=== PATIENT | female | born 1965 | race Caucasian/White ===

== ENCOUNTER 2017-10-13 14:47 | Emergency (ER) | payer BC ==
[~2017-10-13] VITALS: Ht 160 cm; Wt 56.0 kg
[2017-10-13 14:49] VITALS: BP 104/64; PULSE 82; RESP 16; TEMP 98.4; O2SAT 98
[2017-10-13] MEDS ORDERED: SODIUM CHLOR 0.9% 1000 ML INJ 1,000 ML IV SCH (16:12)
[2017-10-13] MEDS ORDERED: SODIUM CHLORIDE 0.9% FLUSH 10 ML FLUSH IV FLUSH PRN (16:15)
[2017-10-13] MEDS ORDERED: ONDANSETRON HCL 4 MG/2 ML VIAL IVP ONE (16:15)
--- NOTE | 2017-10-13 16:15 | PD ---
HPI Chief Complaint: GI Complaint Time Seen by Provider: 16:11 Travel History International Travel<30 days: No Contact w/Intl Traveler<30days: No Traveled to known affect area: No History of Present Illness HPI here visiting, after eating some eggs benedict didn't feel "right". after a few hours patient started to experience n/v/d, throughout the day....denies any abd pain/rash/fever at this time.....no alleviating or aggravating factors... PFSH Past Medical History ?: Not Past Surgical History Hysterectomy: Yes Social History Tobacco Use: No Allergies-Medications (Allergen,Severity, Reaction): Coded Allergies: No Known Allergies (Unverified , 10/13/17) Reported Meds & Prescriptions Reported Meds & Active Scripts Active Naproxen EC (Naproxen) 375 Mg Tabdr 375 Mg PO BID Zofran Odt (Ondansetron Odt) 4 Mg Tab 4 Mg SL Q6HR PRN Review of Systems Except as stated in HPI: all other systems reviewed are Neg General / Constitutional: No: Fever Eyes: No: Visual changes HENT: No: Headaches Cardiovascular: No: Chest Pain or Discomfort Respiratory: No: Shortness of Breath Gastrointestinal: Positive: Abdominal Pain Genitourinary: No: Dysuria Musculoskeletal: No: Pain Skin: No Rash Neurologic: No: Weakness Psychiatric: No: Depression Endocrine: No: Polydipsia Hematologic/Lymphatic: No: Easy Bruising Physical Exam Narrative GENERAL: SKIN: Warm and dry. HEAD: Atraumatic. Normocephalic. EYES: Pupils equal and round. No scleral icterus. No injection or drainage. ENT: No nasal bleeding or discharge. Mucous membranes pink and moist. NECK: Trachea midline. No JVD. CARDIOVASCULAR: Regular rate and rhythm. RESPIRATORY: No accessory muscle use. Clear to auscultation. Breath sounds equal bilaterally. GASTROINTESTINAL: Abdomen soft, non-tender, nondistended. mild hyperactive bowel sounds MUSCULOSKELETAL: Extremities without clubbing, cyanosis, or edema. No obvious deformities. NEUROLOGICAL: Awake and alert. No obvious cranial nerve deficits. Motor grossly within normal limits. Five out of 5 muscle strength in the arms and legs. Normal speech. PSYCHIATRIC: Appropriate mood and affect; insight and judgment normal. Data Data Last Documented VS Vital Signs Date Time Temp Pulse Resp B/P (MAP) Pulse Ox O2 Delivery O2 Flow Rate FiO2 10/13/17 18:36 10/13/17 18:00 89 16 98 Room Air 10/13/17 14:49 98.4 Orders Orders Complete Blood Count With Diff (10/13/17 16:12) Comprehensive Metabolic Panel (10/13/17 16:12) Lipase (10/13/17 16:12) Prothrombin Time / Inr (Pt) (10/13/17 16:12) Act Partial Throm Time (Ptt) (10/13/17 16:12) Urinalysis - C+S If Indicated (10/13/17 16:12) Ct Abd/Pel W/O Iv Contrast (10/13/17 16:12) Iv Access Insert/Monitor (10/13/17 16:12) Ecg Monitoring (10/13/17 16:12) Oximetry (10/13/17 16:12) NPO (10/13/17 16:12) Ondansetron Inj (Zofran Inj) (10/13/17 16:15) Sodium Chlor 0.9% 1000 Ml Inj (Ns 1000 M (10/13/17 16:12) Sodium Chloride 0.9% Flush (Ns Flush) (10/13/17 16:15) Electrocardiogram (10/13/17 16:12) Chest, Single Ap (10/13/17 16:12) Troponin I (10/13/17 16:12) Ed Discharge Order (10/13/17 18:08) Labs Laboratory Tests Test 10/13/17 17:00 10/13/17 18:00 White Blood Count 7.9 TH/MM3 Red Blood Count 4.66 MIL/MM3 Hemoglobin 14.3 GM/DL Hematocrit 42.3 % Mean Corpuscular Volume 90.8 FL Mean Corpuscular Hemoglobin 30.6 PG Mean Corpuscular Hemoglobin Concent 33.7 % Red Cell Distribution Width 13.2 % Platelet Count 221 TH/MM3 Mean Platelet Volume 7.4 FL Neutrophils (%) (Auto) 91.8 % Lymphocytes (%) (Auto) 2.7 % Monocytes (%) (Auto) 4.6 % Eosinophils (%) (Auto) 0.1 % Basophils (%) (Auto) 0.8 % Neutrophils # (Auto) 7.2 TH/MM3 Lymphocytes # (Auto) 0.2 TH/MM3 Monocytes # (Auto) 0.4 TH/MM3 Eosinophils # (Auto) 0.0 TH/MM3 Basophils # (Auto) 0.1 TH/MM3 CBC Comment DIFF FINAL Differential Comment Prothrombin Time 11.1 SEC Prothromb Time International Ratio 1.1 RATIO Activated Partial Thromboplast Time 25.9 SEC Blood Urea Nitrogen 19 MG/DL Creatinine 0.59 MG/DL Random Glucose 102 MG/DL Total Protein 7.8 GM/DL Albumin 4.5 GM/DL Calcium Level 8.9 MG/DL Alkaline Phosphatase 62 U/L Aspartate Amino Transf (AST/SGOT) 38 U/L Alanine Aminotransferase (ALT/SGPT) 50 U/L Total Bilirubin 0.4 MG/DL Sodium Level 135 MEQ/L Potassium Level 4.0 MEQ/L Chloride Level 102 MEQ/L Carbon Dioxide Level 24.6 MEQ/L Anion Gap 8 MEQ/L Estimat Glomerular Filtration Rate 106 ML/MIN Troponin I LESS THAN 0.02 NG/ML Lipase 181 U/L Urine Color YELLOW Urine Turbidity CLEAR Urine pH 5.5 Urine Specific [place] 1.021 Urine Protein NEG mg/dL Urine Glucose (UA) NEG mg/dL Urine Ketones 40 mg/dL Urine Occult Blood TRACE Urine Nitrite NEG Urine Bilirubin NEG Urine Leukocyte Esterase NEG Urine RBC 0-3 /hpf Urine WBC 0-2 /hpf Urine Squamous Epithelial Cells 0-5 /hpf Urine Mucus FEW /lpf Microscopic Urinalysis Comment CULT NOT INDICATED MDM Medical Decision Making Medical Screen Exam Complete: Yes Emergency Medical Condition: Yes Medical Record Reviewed: Yes Interpretation(s) nsr, 75, nl intervals, no stemi pattern, pulse ox has excellent pleth wave, pulse ox 98% on ra which is within normal limits. Differential Diagnosis dehydration v pancreatitis v colitis v divertic v gastroenteritis Narrative Course patient is doing well, tolerated po, per history has no evidence of immune suppression. patient is expected to make a good recovery, pt advised that if symptoms worsen then antibiotics indicated....pt made aware that the vast majority of these infections are self limited and do not require any antibiotics Diagnosis Primary Impression: Bacterial gastroenteritis Patient Instructions: Gastroenteritis (ED), General Instructions Scripts Naproxen DR (Naproxen EC) 375 Mg Tabdr 375 MG PO BID, #12 TAB 0 Refills Prov: Conrado Salgado MD 10/13/17 Ondansetron Odt (Zofran Odt) 4 Mg Tab 4 MG SL Q6HR Y for Nausea/Vomiting, #20 TAB 0 Refills Prov: Conrado Salgado MD 10/13/17 Disposition: 01 DISCHARGE HOME Condition: Stable Conrado Salgado MD Oct 13, 2017 16:15
[2017-10-13 16:30] VITALS: O2SAT 95
[2017-10-13 17:09] LABS: AUTOMATED NEUTROPHIL # 7.2 TH/MM3 (1.8-7.7); BASOPHIL # 0.1 TH/MM3 (0-0.2); BASOPHIL % 0.8 % (0.0-2.0); EOSINOPHIL % 0.1 % (0.0-4.0); HEMATOCRIT 42.3 % (35.0-46.0); HEMOGLOBIN 14.3 GM/DL (11.6-15.3); LYMPH % 2.7 % (9.0-44.0); LYMPHOCYTE # 0.2 TH/MM3 (1.0-4.8); MEAN CELL VOLUME 90.8 FL (80.0-100.0); MEAN CORPUSCULAR HEMOGLOBIN 30.6 PG (27.0-34.0); MEAN CORPUSCULAR HGB CONC 33.7 % (32.0-36.0); MEAN PLATELET VOLUME 7.4 FL (7.0-11.0); MONO % 4.6 % (0.0-8.0); MONOCYTE # 0.4 TH/MM3 (0-0.9); NEUT % 91.8 % (16.0-70.0); PLATELET COUNT 221 TH/MM3 (150-450); RED BLOOD COUNT 4.66 MIL/MM3 (4.00-5.30); RED CELL DISTRIBUTION WIDTH 13.2 % (11.6-17.2); WHITE BLOOD COUNT 7.9 TH/MM3 (4.0-11.0)
[2017-10-13 17:17] LABS: CHLORIDE 102 MEQ/L (98-107); SODIUM (NA) 135 MEQ/L (136-145)
[2017-10-13 17:20] LABS: INTERNATIONAL NORMALIZED RATIO 1.1 RATIO; PROTHROMBIN TIME - PATIENT 11.1 SEC (9.8-11.6)
[2017-10-13 17:21] LABS: ALBUMIN 4.5 GM/DL (3.4-5.0); BICARBONATE 24.6 MEQ/L (21.0-32.0); BLOOD UREA NITROGEN 19 MG/DL (7-18); CALCIUM 8.9 MG/DL (8.5-10.1); GLUCOSE,RANDOM 102 MG/DL (74-106)
[2017-10-13 17:24] LABS: ALT (GPT) 50 U/L (10-53); AST (GOT) 38 U/L (15-37); CREATININE 0.59 MG/DL (0.50-1.00); GLOMERULAR FILTRATION RATE 106 ML/MIN (>89)
[2017-10-13 17:26] LABS: TOTAL BILIRUBIN ADULT 0.4 MG/DL (0.2-1.0); TOTAL PROTEIN 7.8 GM/DL (6.4-8.2)
[2017-10-13 17:27] LABS: ALKALINE PHOSPHATASE 62 U/L (45-117)
[2017-10-13 17:29] LABS: TROPONIN I LESS THAN 0.02 NG/ML (0.02-0.05)
--- NOTE | 2017-10-13 17:45 | RADRPT ---
EXAM DATE/TIME: 10/13/2017 17:29 [facility] COMPARISON: No previous studies available for comparison. INDICATIONS : Non specific abdominal pain with nausea, vomiting and diarrhea. Evaluate for renal stone. ORAL CONTRAST: No oral contrast ingested. RADIATION DOSE: 10.92 CTDIvol (mGy) MEDICAL HISTORY : None SURGICAL HISTORY : Hysterectomy. Cholecystectomy. ENCOUNTER: Initial ACUITY: 1 day PAIN SCALE: 4/10 LOCATION: pelvis abdomen TECHNIQUE: Volumetric scanning of the abdomen and pelvis was performed. Using automated exposure control and ad justment of the mA and/or kV according to patient size, radiation dose was kept as low as reasonably achievable to obtain optimal diagnostic quality images. DICOM format image data is available electro nically for review and comparison. FINDINGS: The lung base is are clear. The liver, spleen and pancreas unremarkable Gallbladder surgically absent Adrenal glands appear normal Right and left kidneys are unremarkable There is no extradural adenopathy In the pelvis the bladder index regions are unremarkable. Scattered pubis are present in the pelvis There is no free fluid Abdominal laguerre intact Review of bone windows reveals only degenerative changes. CONCLUSION: 1. Multiple phleboliths in the pelvis. I do not see evidence for renal stone or obstruction 2. I don't etiology for the abdominal pain. Jose M Montalvo MD FACR on October 13, 2017 at 17:41 Board Certified Radiologist. This report was verified electronically.
--- NOTE | 2017-10-13 17:58 | RADRPT ---
EXAM DATE/TIME: 10/13/2017 16:37 [facility] COMPARISON: No previous studies available for comparison. INDICATIONS : Nausea and vomiting, difficulty breathing. MEDICAL HISTORY : None. SURGICAL HISTORY : None. ENCOUNTER: Initial ACUITY: 1 day PAIN SCORE: 0/10 LOCATION: Bilateral upper chest FINDINGS: A single view of the chest demonstrates the lungs to be symmetrically aerated without evidence of mas s, infiltrate or effusion. The cardiomediastinal contours are unremarkable. Osseous structures are intact with a sideplate and osseous screws securing the mid right clavicular diaphysis CONCLUSION: No acute cardiopulmonary process. Cristhian James MD on October 13, 2017 at 17:55 Board Certified Radiologist. This report was verified electronically.
[2017-10-13 18:00] VITALS: BP 117/71; PULSE 89; RESP 16; O2SAT 98
[2017-10-13] MEDS ORDERED: NAPR375T4 PO (18:04)
[2017-10-13] MEDS ORDERED: ZOFR4TAB3 SL (18:04)
[2017-10-13 18:21] LABS: GLUCOSE,URINE NEG (NEG); KETONE, URINE 40 mg/dL (NEG); NITRITE,URINE NEG (NEG); PH, URINE 5.5 (5.0-8.5); URINE LEUKOCYTE ESTERASE NEG (NEG)
[2017-10-13 18:34] LABS: BILIRUBIN, URINE NEG (NEG); BLOOD, URINE TRACE (NEG)
[2017-10-13 18:36] LABS: URINE COLOR YELLOW (YELLW/STRAW)
[2017-10-13 18:37] LABS: MUCUS URINE FEW /lpf (OCC); RBC, URINE 0-3 /hpf (0-3); SQUAMOUS EPITHELIAL CELL URINE 0-5 /hpf (0-5); WBC, URINE 0-2 /hpf (0-5)
--- NOTE | 2017-10-14 18:25 | EKG ---
Date Performed: 10/13/2017 Time Performed: 16:45:34 PTAGE: 52 years EKG: Sinus rhythm WITH SINUS ARRHYTHMIA LOW QRS VOLTAGE IN PRECORDIAL LEADS BORDERLINE ECG NO PREVIOUS TRACING DOCTOR: Kishan Hein Interpretating Date/Time 10/14/2017 18:23:33
== END 2017-10-13 18:40 | disposition home or self-care (01) ==
LOC: PHED 14:47
DX: K52.89 Other specified noninfective gastroenteritis and colitis (principal); R10.9 Unspecified abdominal pain; R94.31 Abnormal electrocardiogram [ECG] [EKG]
CPT/HCPCS: 71045; 74176; 80053; 81001; 83690; 84484; 85025; 85610; 85730; 93005; 96361; 96374; 99285; J2405; J7030